=== PATIENT | female | born 1995 | race Caucasian/White ===

== ENCOUNTER 2019-12-07 17:19 | Observation (INO) ==
[~2019-12-07 17:19] MED LIST: Acetaminophen 325 MG TABLET PO PRN
[2019-12-07 18:12] LABS: Basophils % 0.2 %; Eosinophils % 0.2 %; Hematocrit 31.7 % (35.3-44.9); Immature Granulocytes % 0.5 % (0-4); Lymphocytes # 2.3 K/mcL (0.6-4.6); Lymphocytes % 23.4 %; Mean Corpuscular HGB Conc 31.5 g/dL (31.6-35.5); Mean Corpuscular Hemoglobin 26.9 pg (28.0-33.3); Mean Corpuscular Volume 85.2 fL (83.0-100.0); Mean Platelet Volume 11.5 fL (9.4-12.4); Monocytes # 0.6 K/mcL (0.0-1.3); Monocytes % 6.5 %; Neutrophils # 6.7 K/mcL (1.6-8.9); Platelet Count 254 K/mcL (140-400); Red Blood Count 3.72 M/mcL (3.82-4.97); Red Cell Distribution Width 13.1 % (11.5-14.5); Segmented Neutrophils % 69.2 %; White Blood Count 9.6 K/mcL (4.3-11.1)
[2019-12-07 18:21] LABS: INR 0.9; Prothrombin Time 10.1 Seconds (9.4-12.1)
[2019-12-07 18:23] LABS: Activated Partial Thrombo Time 25.9 Seconds (26.0-36.0)
[2019-12-07] MEDS ORDERED: Ringers Solution, Lactated 1,000 ML ONE (21:26)
== END 2019-12-08 08:42 | disposition home or self-care (01) ==
LOC: 1NENULAB → EDSTATUS 17:19
PROVIDERS: ADMIT Obstetrics & Gynecology; ATTEND Obstetrics & Gynecology

== ENCOUNTER → 2019-12-29 19:27 | Observation (INO) ==
[2019-12-29 17:19] LABS: Basophils % 0.3 %; Eosinophils % 0.1 %; Hematocrit 31.8 % (35.3-44.9); Immature Granulocytes % 0.6 % (0-4); Lymphocytes # 2.8 K/mcL (0.6-4.6); Mean Corpuscular HGB Conc 31.4 g/dL (31.6-35.5); Mean Corpuscular Volume 82.8 fL (83.0-100.0); Mean Platelet Volume 11.7 fL (9.4-12.4); Monocytes # 0.5 K/mcL (0.0-1.3); Monocytes % 5.4 %; Nucleated Red Blood Cells 0.2 /100 WBC (0); Platelet Count 264 K/mcL (140-400); Red Blood Count 3.84 M/mcL (3.82-4.97); Red Cell Distribution Width 13.6 % (11.5-14.5); Segmented Neutrophils % 63.6 %; White Blood Count 9.4 K/mcL (4.3-11.1)
[2019-12-29 17:28] LABS: Protein/Creatinine Ratio,Urine 0.13 mg/mg (0.00-0.20)
[2019-12-29 17:43] LABS: Alanine Aminotransferase 7 Units/L (7-52); Aspartate Amino Transferase 14 Units/L (13-39); BUN/Creatinine Ratio 16 (6-26); Blood Urea Nitrogen 10 mg/dL (6-20); Lactate Dehydrogenase 137 Units/L (140-271); Uric Acid 5.5 mg/dL (2.3-7.6); eGFR For African Americans > 60 (> 60); eGFR For Non-African Americans > 60 (> 60)
== END | disposition home or self-care (01) ==
LOC: 1NENULAB
PROVIDERS: ADMIT Obstetrics & Gynecology; ATTEND Obstetrics & Gynecology

== ENCOUNTER 2019-12-31 01:57 | Inpatient (IN) ==
[2019-12-31 00:57] LABS: Basophils % 0.2 %; Eosinophils % 0.3 %; Hematocrit 31.5 % (35.3-44.9); Hemoglobin 9.8 g/dL (11.5-15.4); Immature Granulocytes % 0.5 % (0-4); Lymphocytes % 31.4 %; Mean Corpuscular HGB Conc 31.1 g/dL (31.6-35.5); Mean Corpuscular Volume 83.6 fL (83.0-100.0); Mean Platelet Volume 11.3 fL (9.4-12.4); Monocytes # 0.6 K/mcL (0.0-1.3); Monocytes % 6.7 %; Neutrophils # 5.8 K/mcL (1.6-8.9); Platelet Count 241 K/mcL (140-400); Red Blood Count 3.77 M/mcL (3.82-4.97); Red Cell Distribution Width 13.9 % (11.5-14.5); Segmented Neutrophils % 60.9 %; White Blood Count 9.5 K/mcL (4.3-11.1)
[2019-12-31 01:02] LABS: Protein/Creatinine Ratio,Urine 0.67 mg/mg (0.00-0.20)
[2019-12-31 01:12] LABS: Alanine Aminotransferase 6 Units/L (7-52); Aspartate Amino Transferase 14 Units/L (13-39); BUN/Creatinine Ratio 22 (6-26); Blood Urea Nitrogen 13 mg/dL (6-20); Lactate Dehydrogenase 146 Units/L (140-271); Uric Acid 4.9 mg/dL (2.3-7.6); eGFR For African Americans > 60 (> 60); eGFR For Non-African Americans > 60 (> 60)
[~2019-12-31 01:57] MED LIST changes: +*HR* FentaNYL (PF) 100 MCG/2 ML VIAL IVP PRN; -Acetaminophen 325 MG TABLET PO PRN; +Azithromycin 500 MG in 0.9 % Sodium Chloride 250 ML IVPB ONE; +Famotidine 20 MG/2 ML VIAL IVP PRN; +Metoclopramide 10 MG/2 ML VIAL IVP PRN; +Naloxone 0.4 MG/ML INJ IVP PRN; +Ondansetron 4 MG/2 ML VIAL IVP PRN
[2019-12-31] MEDS ORDERED: Oxytocin 20 units/ LR 1000 mL 20 UNIT/1,000 ML BAG IVC SCH ×2 (02:00→14:09)
[2019-12-31] MEDS ORDERED: Ringers Solution, Lactated 1,000 ML IVC SCH (02:00)
[2019-12-31 02:24] LABS: Amphetamine Screen,Urine Negative ng/mL (Cutoff=1000); Barbiturate Screen,Urine Negative ng/mL (Cutoff=200); Benzodiazepines Screen,Urine Negative ng/mL (Cutoff=200); Cannabinoid Screen,Urine Negative ng/mL (Cutoff = 50); Cocaine Screen,Urine Negative ng/mL (Cutoff= 300); Opiate Screen,Urine Negative ng/mL (Cutoff=300); Phencyclidine Screen,Urine Negative ng/mL (Cutoff=25)
[2019-12-31] MEDS ORDERED: Bupivacaine-MPF 0.25% 10 ML VIAL EP ONE (05:26)
[2019-12-31] MEDS ORDERED: *HR* FentaNYL (PF) 100 MCG/2 ML VIAL EP ONE (05:26)
[2019-12-31] MEDS ORDERED: EPHEDrine 50 MG/ML VIAL IVP PRN (05:26)
[2019-12-31] MEDS ORDERED: *HR* FentaNYL (PF) 100 MCG/2 ML VIAL ONE (05:29)
[2019-12-31] MEDS ORDERED: Bupivacaine-MPF 0.25% 10 ML VIAL ONE (05:29)
[2019-12-31] MEDS ORDERED: Epidural Premix (fent/bupiv) 110 ML EP SCH (05:30)
[2019-12-31] MEDS ORDERED: Ropivacaine/PF 0.2% 20 ML VIAL ONE (07:32)
[2019-12-31] MEDS ORDERED: Lidocaine -MPF 2% 5 ML VIAL ONE ×2 (07:32→09:24)
[2019-12-31] MEDS ORDERED: Ibuprofen 600 MG TABLET PO ONE (10:47)
[2019-12-31] MEDS ORDERED: Measles/Mumps/Rubella Vacc 0.5 ML VIAL SQ PRN (14:09)
[2019-12-31] MEDS ORDERED: Acetaminophen 325 MG TABLET PO PRN (14:09)
[2019-12-31] MEDS ORDERED: Lanolin 7 G OINT...G. TP PRN (14:09)
[2019-12-31] MEDS ORDERED: Oxytocin 20 units/ LR 1000 mL 20 UNIT/1,000 ML BAG IVC ONE (14:09)
[2019-12-31] MEDS ORDERED: Benzocaine/Menthol 56 GM AEROSOL SPRAY TP PRN (14:09)
[2019-12-31] MEDS ORDERED: *HR* HYDROcodone/Acet 5/325 mg TABLET PO PRN (14:09)
[2019-12-31] MEDS: Ibuprofen 600 MG TABLET PO PRN (17:50)
[2019-12-31] MEDS: Nitrofurantoin (BID) 100 MG CAPSULE PO SCH (21:01)
[2020-01-01] MEDS: Ibuprofen 600 MG TABLET PO PRN (00:02)
[2020-01-01 07:47] VITALS: BP 127/66
[2020-01-01] MEDS: Nitrofurantoin (BID) 100 MG CAPSULE PO SCH (07:52)
[2020-01-01] MEDS ORDERED: Prenatal Vit/FA 1 EACH TABLET PO SCH (09:00)
[2020-01-01 09:40] LABS: Basophils % 0.3 %; Eosinophils % 0.1 %; Hemoglobin 8.3 g/dL (11.5-15.4); Immature Granulocytes % 0.7 % (0-4); Lymphocytes # 2.3 K/mcL (0.6-4.6); Lymphocytes % 21.3 %; Mean Corpuscular HGB Conc 30.7 g/dL (31.6-35.5); Mean Corpuscular Hemoglobin 26.3 pg (28.0-33.3); Mean Corpuscular Volume 85.4 fL (83.0-100.0); Mean Platelet Volume 11.1 fL (9.4-12.4); Monocytes # 0.5 K/mcL (0.0-1.3); Monocytes % 4.9 %; Neutrophils # 7.8 K/mcL (1.6-8.9); Platelet Count 231 K/mcL (140-400); Red Blood Count 3.16 M/mcL (3.82-4.97); Red Cell Distribution Width 14.3 % (11.5-14.5); Segmented Neutrophils % 72.7 %; White Blood Count 10.8 K/mcL (4.3-11.1)
[2020-01-01] MEDS ORDERED: FLU Vac QV 20-21 (6Month+)/PF 0.5 ML SYRINGE IM ONE (11:04)
== END 2020-01-01 12:38 | disposition home or self-care (01) | DRG 768 ==
LOC: 1NENULAB → 1NENUOBS 13:12
PROVIDERS: ADMIT Obstetrics & Gynecology; ATTEND Obstetrics & Gynecology